=== PATIENT | female | born 1950 | race Caucasian/White ===

== ENCOUNTER → 2022-02-11 11:35 | Outpatient (BNVA) | payer MEDICARE, OTHER, SELFPAY | PROVIDERS: Visit Provider Obstetrics & Gynecology | DX: N95.0 Postmenopausal bleeding (principal) | CPT/HCPCS: 85025 ==

== ENCOUNTER → 2022-03-03 15:06 | Outpatient (BNVA) | payer MEDICARE, OTHER, SELFPAY | PROVIDERS: Visit Provider Obstetrics & Gynecology | DX: N95.0 Postmenopausal bleeding (principal); N85.00 Endometrial hyperplasia, unspecified | CPT/HCPCS: 76830 ==

== ENCOUNTER → 2022-04-01 10:33 | Outpatient (BNVA) | payer MEDICARE, OTHER, SELFPAY | PROVIDERS: Visit Provider Obstetrics & Gynecology | DX: Z01.812 Encounter for preprocedural laboratory examination (principal); N95.0 Postmenopausal bleeding | CPT/HCPCS: 80053; 81000; 85025; 86850; 86900 ==

== ENCOUNTER 2022-04-07 06:18 | Day surgery (SDC) | payer MEDICARE, OTHER, SELFPAY ==
[2022-04-01 12:54] VITALS: BMI 32.8
--- NOTE | 2022-04-01 13:26 | ANES.PREANE2 ---
Pre-Anesthetic Assessment Height/Weight: Height 1.6 m Weight 83.915 kg Operation Date: 04/07/22 08:50 Proposed Procedures p Hysteroscopy, dilation and curettage with Myosure 00489, 69909, 93194,N95.0(Not Applicable) - Carlos Rosas MD s Dilation And Curettage (D&C)(Not Applicable) - Carlos Rosas MD Familial anesthetic complications: None Was Beta Star taken within 24 hours: N/A Was Clonidine taken within 24 hours: N/A Social No alcohol and No tobacco Exam alert, oriented x 3, clear to auscultation bilaterally and regular rate & rhythm Airway Submandibular: within normal limits Cervical ROM: within normal limits Mallampati: Class I Dentition: full History/ROS No significant complaints Pulmonary None reported CV/HEM None reported post menopausal bleeding stress incontinence Hepatic None reported GI None reported Metabolic None reported Musc/skel None reported Neuropsych None reported Anesthetic Plan ASA status: 1 Anesthesia: Anesthesia Evaluation and General Other: We discussed risk and benefits of general anesthesia including PONV, sore throat (sometimes severe), corneal abrasion, positioning and peripheral nerve injuries, life threatening allergic reaction, post operative ICU admission requiring prolonged intubation, stroke, heart attack, , and rare incidences of recall. Patient consents to proceed with general anesthesia. Risk of > 500 ml blood loss (7ml/kg in children): No Medications/Allergies Home Medications Medication Instructions Recorded Confirmed Last Taken Type Allergy relief PO DAILY 02/11/22 04/01/22 Unknown History calcium PO .at night 02/11/22 04/01/22 Unknown History ferrous sulfate 325 mg (65 mg 325 mg PO DAILY 02/11/22 04/01/22 Unknown History iron) tablet (Feosol) garlic PO BID 02/11/22 04/01/22 Unknown History levothyroxine 50 mcg capsule 50 mcg PO DAILY 02/11/22 04/01/22 Unknown History multivitamin 1 tab PO DAILY 02/11/22 04/01/22 Unknown History niacin 500 mg tablet 1,000 mg PO DAILY tab 02/11/22 04/01/22 Unknown History psyllium husk 0.4 gram capsule 0.8 g PO DAILY cap 02/11/22 04/01/22 Unknown History (Daily Fiber) quinapril 40 mg tablet 40 mg PO DAILY 02/11/22 04/01/22 Unknown History simvastatin 10 mg tablet 10 mg PO DAILY 02/11/22 04/01/22 Unknown History spironolactone 50 mg tablet 50 mg PO DAILY 02/11/22 04/01/22 Unknown History tumeric PO .at hs 02/11/22 04/01/22 Unknown History vitamin d3 PO DAILY 02/11/22 04/01/22 Unknown History Allergies Allergy/AdvReac Type Severity Reaction Status Date / Time adhesive tape Allergy tears skin Verified 04/01/22 09:23 [facility] Anesthesia Medical History (Updated 02/11/22 @ 13:46 by Carlos Rosas MD) Post-menopausal bleeding Family History (Updated 02/11/22 @ 10:41 by Naina Le RN) Daughter No problems noted. Brother Anesthesia complication Hyperlipidemia Bladder cancer Son Diabetes Sister Hyperlipidemia Hypertension Stroke Breast cancer, Onset Age: 45 Lung cancer x2 Father Heart disease Mother Ovarian cancer, Onset Age: 56 Grandmother Colon cancer, Onset Age: 62 maternal Denies family history of Clotting disorder Bleeding disorder Uterine cancer Thyroid condition Data Anesthesia Cardiac Studies: No Data to Display
[2022-04-07] VITALS (9 sets, daily range): BP systolic 138–176; BP diastolic 57–125; PULSE 69–85; RESP 16–24; TEMP 36.2–36.6; O2SAT 99–100
[2022-04-07] MEDS: sodium chloride 0.9% 1,000 ML 30 ML IV (06:52)
--- NOTE | 2022-04-07 06:56 | W.PM.OPSUD ---
Surgery/Procedure H&P Update DATE OF PROCEDURE: April 07, 2022 DATE H&P PERFORMED: 04/01/22 H&P UPDATE INFORMATION: I have reviewed H&P completed within last 30 days, I have examined patient prior to procedure and No changes to prior documentation PREOP DIAGNOSIS: Postmenopausal bleeding PLANNED PROCEDURE: Operation Date: 04/07/22 08:00 Proposed Procedures p Hysteroscopy, dilation and curettage with Myosure 71259, 03016, 17888,N95.0(Not Applicable) - Carlos Rosas MD s Dilation And Curettage (D&C)(Not Applicable) - Carlos Rosas MD
[2022-04-07] MEDS: scopolamine 1.5 Patch 1 PATCH TRANSDERMA (06:59)
--- NOTE | 2022-04-07 07:36 | P.ANESUD_ITS ---
Pre-Anesthetic Update Pre-Anesthetic Assessment: Date of Surgery/Procedure: 04/07/22 Preop Tea gnosis: Postmenopausal bleeding Proposed Procedure: Operation Date: 04/07/22 08:00 Proposed Procedures p Hysteroscopy, dilation and curettage with Myosure 53790, 28203, 11098,N95.0(Not Applicable) - Carlos Rosas MD s Dilation And Curettage (D&C)(Not Applicable) - Carlos Rosas MD Any changes to Pre-Anesthetic Assessment?: No Last Intake: Intake Last Liquid Date 04/06/22 Last Liquid Time 21:30 Last Solid Date 04/06/22 Last Solid Time 19:00 Vitals: Temperature 97.9 F 04/07/22 06:44 Temperature Source Temporal Artery S can 04/07/22 06:44 Pulse Rate 70 04/07/22 06:44 Respiratory Rate 16 04/07/22 06:44 Blood Pressure 152/75 04/07/22 06:59 Blood Pressure Ute n 100 04/07/22 06:59 Pulse Oximetry 99 04/07/22 06:44 Oxygen Delivery Me thod 04/07/22 06:44 Exam: Pre-Anes Outpt Exam: alert, oriented x 3, clear to auscultation bilaterally and regular rate & rhythm Cardiac Studies: No Data to Display
--- NOTE | 2022-04-07 08:25 | P.OP_ITS ---
Operative Report Date of procedure: April 07, 2022 Pre-op diagnosis: Preop Diagnosis Postmenopausal bleeding Post-op diagnosis: Same as above Post-op findings: Anterior endometrial wall with proliferative endometrium Procedure done: Hysteroscopy Dilation and curettage via MyoSure Specimens removed/disposition: Endometrial curettings Surgeon: Carlos Rosas MD Estimated blood loss (mL): 5 IV fluids (mL): 800 Complications: None Brief History: Mrs. Antunez 71-year-old female with postmenopausal bleeding Procedure: After informed consent, the risks included but were not limited to bleeding, infection, injury to internal organs. The patient was counseled on a possible laparotomy and on the potential need for hysterectomy. The patient expressed understanding of the risks involved, all questions were answered, and the patient consented to the procedure. The patient was taken to the operating room where general anesthesia was administered. She was placed in the dorsal lithotomy position and prepped and draped in sterile fashion. A time out procedure was performed. The patient was examined under anesthesia and found to have a normal uterus with normal adnexa. A sterile weight speculum was placed in the vagina. The uterus was then gently sounded to 9 cm, and the cervix was dilated. The 0 degrees MyoSure hysteroscope was advanced gently to the uterine fundus while visualizing the monitor. Survey of the uterine cavity showed: Anterior endometrial wall with proliferative endometrium, the fundus shows atrophic endometrium; left ostium was visualized, and lateral wall with atrophic endometrium; right ostium visualized, and lateral wall with atrophic endometrium; anterior and posterior cook are with anterior wall with prolifer ative endometrium and posterior wall with atrophic endometrium; endocervical canal is normal. The MyoSure device was advanced and the direct visualization the endometrium was morcellated without complication. At the end of morcellation the fluid deficit was 400 mL and was estimated at approximately 300 mL were on the floor. There was minimal bleeding noted and the tenaculum removed with goad hemostasis noted. The patient tolerated the procedure well. The patient was taken to the recovery area in stable condition.
--- NOTE | 2022-04-07 13:23 | ANE.PACU2 ---
Inpatient post-anesthesia follow up: Airway intact: Yes Vital signs: Temperature 98 F Pulse Rate 71 Respiratory Rate 16 Blood Pressure 142/71 Pulse Oximetry 100 Oxygen Delivery Me thod Room Air Oxygen Flow Rate 6 Fraction of Inspir ed Oxygen Hydration adequate: Yes Nausea and vomiting: No Pain level: 1 Mental status: Baseline
== END 2022-04-07 09:35 | disposition home or self-care (01) ==
PROVIDERS: Visit Provider Obstetrics & Gynecology
PROC: 0UDB8ZZ Extraction of Endometrium, Via Natural or Artificial Opening Endoscopic (ICD-10-PCS; CPT 58558; principal; 2022-04-07 08:00)
PROC: (CPT 58120; 2022-04-07 08:00)
DX: N95.0 Postmenopausal bleeding (principal)
CPT/HCPCS: 58558; 86850; 86900; 88305; J1100; J2405; J2704; J3010; J7030